=== PATIENT | female | born 1995 ===

== ENCOUNTER 2019-09-30 06:42 | Emergency (ER) | payer SELFPAY | END 2019-09-30 07:58 | disposition home or self-care (01) | LOC: ERS 06:42 | DX: R50.9 Fever, unspecified (principal); R05 Cough; F41.9 Anxiety disorder, unspecified; F32.9 Major depressive disorder, single episode, unspecified; F17.210 Nicotine dependence, cigarettes, uncomplicated | CPT/HCPCS: 99282 ==